=== PATIENT | female | born 1980 | race African-American/Black ===

== ENCOUNTER 2020-01-19 12:54 | Observation (INO) ==
[2020-01-19] MEDS ORDERED: ACETAMINOPHEN 325 MG TABLET PO PRN (16:42)
[2020-01-19] MEDS ORDERED: oxyCODONE IR 5 MG TABLET PO PRN (16:42)
[2020-01-19] MEDS ORDERED: ONDANSETRON 4 MG/2 ML VIAL IV PRN ×2 (16:42)
[2020-01-19] MEDS ORDERED: POTASSIUM CHLORIDE 20 MEQ TABLET PO PRN (16:42)
[2020-01-19] MEDS ORDERED: MORPHINE 4 MG/1 ML VIAL IV PRN (16:42)
[2020-01-19] MEDS ORDERED: MAGNESIUM SULF RIDER 4 GM in PREMIX 1 EACH IV PRN (16:42)
[2020-01-19] MEDS ORDERED: MAGNESIUM SULF RIDER 2 GM in PREMIX 1 EACH IV PRN (16:42)
[2020-01-19] MEDS ORDERED: NITROGLYCERIN SL 0.4 MG TABLET SL PRN (16:42)
[2020-01-19] MEDS: SODIUM CHLORIDE 0.45% 1,000 ML IV SCH (17:00)
[2020-01-19 17:21] LABS: Alanine Aminotransferase 18 U/L (13-56); Albumin 3.5 G/DL (3.4-5.0); Alkaline Phosphatase 83 U/L (45-117); Aspartate Amino Transferase 13 U/L (0-37); Blood Urea Nitrogen 8 MG/DL (7-18); Calcium 8.8 MG/DL (8.5-10.1); Estimated Glom Filtration Rate 91 ML/MIN; Glucose 141 MG/DL (74-106); Osmolality,Calculated 282.1 MOS/KG (273-304); Total Protein 7.6 G/DL (6.4-8.3)
[2020-01-19] MEDS: POTASSIUM CHLORIDE 20 MEQ TABLET PO PRN ×2 (17:54→19:06)
[2020-01-19 18:23] LABS: Barbiturates Screen,Urine Negative (Negative); Benzodiazepines Screen,Urine Negative (Negative); Cannabinoid Screen,Urine Negative (Negative); Opiate Screen,Urine Negative (Negative); Phencyclidine Screen,Urine Negative (Negative)
[2020-01-19] MEDS ORDERED: ROSUVASTATIN 20 MG TABLET PO SCH (21:00)
[2020-01-19] MEDS: carvediloL 3.125 MG TABLET PO SCH (22:07)
[2020-01-19] MEDS: ENOXAPARIN 40 MG/0.4 ML SYRINGE SUBCUT SCH (22:08)
[2020-01-20 06:32] LABS: Basophils % 0.2 % (0.0-0.8); Eosinophils % 0.5 % (0.00-10.9); Immature Granulocytes % 0.3 %; Immature Granulocytes Absolute 0.03 #; Lymphocytes # 3.1 10*3/uL (1.4-4.0); Lymphocytes % 35.3 % (21.3-54.2); Mean Corpuscular HGB Conc 30.8 GM/DL (32-36); Mean Corpuscular Volume 88.6 FL (87-102); Mean Platelet Volume 10.1 FL (9.6-12.0); Monocytes % 8.1 % (1.7-12.7); Neutrophils % 55.6 % (38.7-73.9); Platelet Count 311 T/CUMM (130-400); Red Cell Distribution Width 14.1 % (9.3-17.3); White Blood Count 8.9 T/CUMM (4-12)
[2020-01-20 07:03] LABS: Albumin 3.2 G/DL (3.4-5.0); Bilirubin,Total 1.2 MG/DL (0.2-1.0); Calcium 8.5 MG/DL (8.5-10.1); Total Protein 7.2 G/DL (6.4-8.3)
[2020-01-20 07:25] LABS: Risk Ratio 5.11; Thyroid Stimulating Hormone 1.01 uIU/ml (0.358-3.74); VLDL CHOLESTEROL 24.2 MG/DL
[2020-01-20] MEDS ORDERED: POTASSIUM CHLORIDE 20 MEQ TABLET PO ONE (08:38)
[2020-01-20] MEDS ORDERED: amLODIPine 5 MG TABLET PO SCH (09:00)
[2020-01-20] MEDS: carvediloL 3.125 MG TABLET PO SCH (09:48)
[2020-01-20] MEDS: ENOXAPARIN 40 MG/0.4 ML SYRINGE SUBCUT SCH (09:48)
[2020-01-20] MEDS: SODIUM CHLORIDE 0.45% 1,000 ML IV SCH (09:49)
[2020-01-20] MEDS ORDERED: SPIRONOLACTONE 50 MG TABLET PO SCH (11:23)
[2020-01-20 12:25] VITALS: BP 143/77
== END 2020-01-20 16:31 | disposition home or self-care (01) ==
LOC: N.TELES
PROVIDERS: ADMIT Internal Medicine; ATTEND Hospitalist